=== PATIENT | male | born 2000 | race Two or more races ===

== ENCOUNTER 2023-01-26 09:50 | Inpatient (IN) | payer MEDICAID ==
[~2023-01-26] VITALS: Ht 185.4 cm; Wt 68.2 kg
[2023-01-26] MEDS ORDERED: LORazepam 1 MG TABLET PO ONE (11:00)
[2023-01-26] MEDS ORDERED: HALOPERIDOL 5 MG TABLET PO ONE (11:00)
[2023-01-26 11:22] LABS: COVID AG,FIA SOURCE NASOPHARYNGEAL
[2023-01-26] MEDS ORDERED: HALOPERIDOL 5 MG TABLET PO PRN (11:30)
[2023-01-26] MEDS ORDERED: ZOLPIDEM TARTRATE 10 MG TABLET PO PRN (11:30)
[2023-01-26] MEDS ORDERED: LORazepam 2 MG TABLET PO PRN (11:30)
[2023-01-26 11:44] LABS: SARS-COV2 (COVID) ANTIGEN,FIA Negative (Negative)
[2023-01-26] MEDS ORDERED: LORazepam 2 MG/ML VIAL ONE (16:47)
[2023-01-26] MEDS ORDERED: HALOPERIDOL LACTATE 5 MG/ML VIAL ONE (16:47)
[2023-01-26] MEDS ORDERED: DiphenhydrAMINE HCL 50 MG/ML VIAL ONE (16:47)
[2023-01-26] MEDS ORDERED: HALOPERIDOL LACTATE 5 MG/ML VIAL IM ONE (17:00)
[2023-01-26] MEDS ORDERED: DiphenhydrAMINE HCL 50 MG/ML VIAL IM ONE (17:00)
[2023-01-26] MEDS ORDERED: LORazepam 2 MG/ML VIAL IM ONE (17:00)
[2023-01-26 21:00] VITALS: RESP 18
[2023-01-26 21:15] VITALS: BP 135/83; PULSE 84; RESP 18; TEMP 97.6; O2SAT 97
[2023-01-27] MEDS ORDERED: ALBUTEROL SULFATE HFA 90 MCG/PUFF 8 GM INHALER IH PRN (09:45)
[2023-01-27] MEDS ORDERED: CloNIDine HCL 0.1 MG TABLET PO PRN (09:45)
[2023-01-27] MEDS ORDERED: BENZOCAINE/MENTHOL LOZENGE PO PRN (09:45)
[2023-01-27] MEDS ORDERED: DOCUSATE SODIUM 100 MG CAPSULE PO PRN (09:45)
[2023-01-27] MEDS ORDERED: LOPERAMIDE HCL 2 MG CAPSULE PO PRN (09:45)
[2023-01-27] MEDS ORDERED: PETROLATUM,WHITE 28 GM JELLY TP PRN (09:45)
[2023-01-27] MEDS ORDERED: IBUPROFEN 600 MG TABLET PO PRN (09:45)
[2023-01-27] MEDS ORDERED: ACETAMINOPHEN 325 MG TABLET PO PRN (09:45)
[2023-01-27] MEDS ORDERED: MAGNESIUM HYDROXIDE SUSPENSION 30 ML UDCUP PO PRN (09:45)
[2023-01-27] MEDS ORDERED: MAG HYDROX/AL HYDROX/SIMETH ES 30 ML SUSPENSION UDCUP PO PRN (09:45)
[2023-01-27] MEDS ORDERED: OMEPRAZOLE 20 MG CAPSULE PO PRN (09:45)
[2023-01-27] MEDS ORDERED: BACITRACIN 28 GM OINTMENT TP PRN (09:45)
[2023-01-27] MEDS ORDERED: ONDANSETRON HCL 4 MG TABLET PO PRN (09:45)
[2023-01-27 11:48] VITALS: RESP 18
[2023-01-27 18:35] LABS: PH,URINE DRUG SCREEN 5.5 (5.0-8.0)
[2023-01-27 18:42] LABS: ALCOHOL, URINE DRUG SCREEN NEGATIVE (NEGATIVE); AMPHET/METH SCREEN,URINE NEGATIVE (NEGATIVE); BARBITURATE SCREEN, URINE NEGATIVE (NEGATIVE); BENZODIAZEPINES SCREEN,URINE NEGATIVE (NEGATIVE); CANNABINOID SCREEN,URINE NEGATIVE (NEGATIVE); COCAINE SCREEN,URINE NEGATIVE (NEGATIVE); METHADONE SCREEN, URINE NEGATIVE (NEGATIVE); OPIATE SCREEN,URINE NEGATIVE (NEGATIVE); PHENCYCLIDINE SCREEN,URINE NEGATIVE (NEGATIVE)
[2023-01-27 22:36] VITALS: BP 152/90; PULSE 95; RESP 18; TEMP 97.5; O2SAT 100
[2023-01-28 06:48] LABS: BASOPHILS % (AUTO) 0.4 % (0.0-2.0); EOSINOPHILS % (AUTO) 0.8 % (1.0-6.0); HEMATOCRIT 47.8 % (41-53); HEMOGLOBIN 16.3 g/dL (13.5-17.5); LYMPHOCYTES # (AUTO) 1.8 K/uL (1.0-4.8); MEAN CORPUSCULAR VOLUME 94 fL (80-100); MONOCYTES # (AUTO) 0.6 K/uL (0.1-1.0); MONOCYTES % (AUTO) 7.2 % (2.0-9.0); NEUTROPHILS # (AUTO) 5.8 K/uL (1.8-7.7); NEUTROPHILS % (AUTO) 69.6 % (40.0-70.0); PLATELET COUNT (AUTO) 226 K/uL (150-450); RED BLOOD CELL COUNT(AUTO) 5.08 MIL/uL (4.50-5.90); RED CELL DISTRIBUTION WIDTH 13.4 % (11.5-14.5); WHITE BLOOD COUNT (AUTO) 8.3 K/uL (4.5-11.0)
[2023-01-28 06:59] LABS: RBC MORPHOLOGY COMMENT NORMAL RBC MORPH
[2023-01-28 07:25] LABS: ALANINE AMINOTRANSFERASE 16 U/L (12-78); ALKALINE PHOSPHATASE 65 U/L (46-116); ANION GAP 12 mmol/L (8-16); ASPARTATE AMINOTRANSFERASE 43 U/L (15-37); BILIRUBIN,TOTAL 1.1 mg/dL (0.1-1.0); CALCIUM, TOTAL 9.2 mg/dL (8.8-10.5); CARBON DIOXIDE 24 mmol/L (22-29); CHLORIDE 104 mmol/L (98-107); CHOL/HDL RATIO 1.9 (4.2-7.3); CHOLESTEROL 149 mg/dL (131-200); CREATININE 0.93 mg/dL (0.60-1.30); GLOMERULAR FILTR. RATE CALC > 60 mL/min (>60); GLUCOSE,RANDOM 85 mg/dL (70-110); HDL CHOLESTEROL 77 mg/dL (40-60); LDL CHOL (CALC.) 68 mg/dL (0-130); PHOSPHORUS 3.7 mg/dL (2.5-4.9); POTASSIUM 3.5 mmol/L (3.5-5.1); SODIUM SERUM 140 mmol/L (136-145); THYROID STIMULATING HORMONE 1.41 uIU/mL (0.36-3.74); TOTAL PROTEIN, SERUM 7.5 g/dL (6.4-8.2); TRIGLYCERIDES 20 mg/dL (15-150); UREA NITROGEN, BLOOD 13 mg/dL (7-18)
[2023-01-28 07:51] LABS: HEMOGLOBIN A1C 4.8 % (3.8-5.6)
[2023-01-28 08:37] VITALS: BP 126/75; PULSE 79; RESP 18; TEMP 97.9; O2SAT 98
[2023-01-28] MEDS ORDERED: RisperiDONE 1 MG TABLET PO SCH (17:00)
[2023-01-28] MEDS: RisperiDONE 3 MG TABLET PO SCH (17:00)
[2023-01-28 21:37] VITALS: BP 134/93; PULSE 89; RESP 19; TEMP 97.3; O2SAT 100
[2023-01-29 08:27] VITALS: BP 143/85; PULSE 86; RESP 18; TEMP 97.7; O2SAT 100
[2023-01-29] MEDS: RisperiDONE 3 MG TABLET PO SCH ×3 (08:57→16:58)
[2023-01-29 20:51] VITALS: RESP 18
[2023-01-30 08:33] VITALS: BP 134/80; PULSE 87; RESP 18; TEMP 97.8; O2SAT 97
[2023-01-30] MEDS: RisperiDONE 3 MG TABLET PO SCH (09:00)
== END 2023-01-30 15:30 | disposition home or self-care (01) | DRG 751 ==
LOC: EMS 09:50 → 3EC 18:35
PROVIDERS: ADMIT Psychiatry & Neurology Psychiatry; ATTEND Psychiatry & Neurology Psychiatry
DX: F29 Unspecified psychosis not due to a substance or known physiological condition (principal); F20.9 Schizophrenia, unspecified; G47.00 Insomnia, unspecified; K59.00 Constipation, unspecified; Z20.822 Contact with and (suspected) exposure to COVID-19; F41.9 Anxiety disorder, unspecified; Z79.899 Other long term (current) drug therapy
CPT/HCPCS: 80053; 80061; 80307; 83036; 83735; 84100; 84443; 85025; 99285; J1200; J1630; J2060